=== PATIENT | female | born 1980 | race Hispanic/Latino ===

== ENCOUNTER 2023-07-23 00:42 | Emergency (ER) | payer SELFPAY ==
[2023-07-23] MEDS ORDERED: Ondansetron PF 4 MG/2 ML Vial ONE (00:53)
[2023-07-23] MEDS ORDERED: methylPREDNISolone Sod Succ/PF 125 MG/2 ML VIAL ONE (00:57)
[2023-07-23] MEDS ORDERED: Famotidine/PF 20 mg/2ml Vial ONE (00:58)
== END 2023-07-23 02:07 | disposition home or self-care (01) ==
LOC: CSHERS 00:42
DX: T78.40XA Allergy, unspecified, initial encounter (principal); L50.9 Urticaria, unspecified
CPT/HCPCS: 96374; 96375; J2405; J2930; S0028